=== PATIENT | female | born 1935 | race Caucasian/White ===

== ENCOUNTER 2017-04-17 08:01 | Emergency (ER) | payer OTHER, MEDICARE ==
[~2017-04-17] VITALS: Ht 160 cm; Wt 81.8 kg
[~2017-04-17 08:01] MED LIST: ACYCLOVIR200 MG PO; ADVIL LIQUI-GE200 MG PO; ARIXTRA2.5 MG/0.5 SC; ASCO-TABS-1001000 MG PO; ASCORBIC ACID500 M3 PO; ASPIR-TRIN325 M1 PO; ASPIRIN EC325 MG PO; ATORVASTATIN CA40 MG PO; AUGMENTIN875 MG PO; BAYER CHEWABLE81 MG PO; BENADRYL25 MG PO; BUMETANIDE1 MG PO; CARDIZEM30 MG PO; CLEOCIN300 MG PO; CO Q-1010 MG PO; Calcium/Magnesiun/Zi PO; DIAZEPAM5 MG PO; DIGESTIVE EN1 TABLET PO; DOCUSATE SODIU100 MG PO; Demerol PO; ENDOCET 5-3251 EACH PO; GABAPENTIN300 MG PO; Garlic PO; K-DUR20 MEQ PO; KEFLEX250 MG PO; KRISTALOSE20 GM PO; LANTUS 10100 UNITS/ SC; LASIX20 MG PO; LITE COAT ASPI325 M1 PO; MAG-OX400 M1 PO; METOPROLOL SUCC25 MG PO; METOPROLOL TART50 MG PO; MIRALAX17 GM PO; NEXIUM40 MG PO; NITROSTAT,NITR0.4 M1 SL; NITROSTAT0.4 MG SL; NOVOLIN R (UNI1 UNIT SC; NOVOLIN,HU100 UNITS1 SC; NOVOLOG PE100 UNITS/ SC; Niacin PO; OXYCODONE HCL10 MG PO; Omega III EPA + DHA PO; PEN-VEE K,VEET500 MG PO; PROMETHAZINE HC25 M1 PO; PROTONIX40 MG PO; PYRIDOXINE,VIT100 MG PO; ROXICODONE5 MG PO; SENNA8.6 MG PO; TESSALON PERLE100 MG PO; Tums,OsCal PO; VALIUM5 MG PO; VITAMIN B122500 MCG PO; VITAMIN D1000 INTUN PO; VITAMIN D5000 UNIT PO; Vitamin B Complex PO; Vitamin D PO; Vitamin-E PO; ZOFRAN4 MG/2 ML IV; [UNRECOGNIZED DRUG - OTHER]
[2017-04-17 10:23] LABS: CHLORIDE 109 mEq/L (99-109); POTASSIUM 4.1 mEq/L (3.7-5.4); SODIUM 141 mEq/L (136-147)
[2017-04-17 10:24] LABS: GLUCOSE 154 mg/dL (70-99)
[2017-04-17 10:26] LABS: ANION GAP 12 MEQ/L (2-14)
[2017-04-17 10:28] LABS: GFR ESTIMATE (CALCULATED) > 59 mL/min/
[2017-04-17 10:29] LABS: UREA NITROGEN (BUN) 18 mg/dL (9-23)
[2017-04-17 10:59] LABS: EOSINOPHIL (%) 2.1 % (0-5); EOSINOPHIL COUNT 0.2 K/uL (0-0.3); HEMATOCRIT 39.1 % (36.0-46.0); IMMATURE GRANULOCYTE (%) 0.3 % (0.0-0.7); INSTRUMENT ABS NEUTROPHIL CT 4.2 K/uL; LYMPHOCYTE COUNT 2.2 K/uL (1.0-2.8); MCH 31.3 PG (29.0-34.0); MCHC 33.5 G/DL (30.0-36.0); MCV 93.3 FL (83-99); MONOCYTE (%) 12.5 % (3-12); MONOCYTE COUNT 0.9 K/uL (0-0.8); NEUTROPHIL (%) 55.3 % (45-76); NEUTROPHIL COUNT 4.2 K/uL (1.8-6.4); RBC DIS.WIDTH-CV 12.7 % (11.8-14.6); RBC DIS.WIDTH-SD 43.7 % (39-53); RED BLOOD COUNT 4.19 M/uL (3.80-5.20); WHITE BLOOD COUNT 7.5 K/uL (4.1-10.2)
[2017-04-17 11:28] LABS: PLAT.SUFFICIENCY ADEQUATE; PLATELET COUNT UNABLE TO REPORT K/uL (156-360)
[2017-04-17] MEDS ORDERED: DEMEROL50 MG PO (12:53)
[2017-04-17 13:14] VITALS: BP 130/50
== END 2017-04-17 13:20 | disposition home or self-care (01) ==
LOC: EME 08:01
PROVIDERS: Emergency Medicine
DX: S62.102A Fracture of unspecified carpal bone, left wrist, initial encounter for closed fracture (principal); S40.012A Contusion of left shoulder, initial encounter; W01.0XXA Fall on same level from slipping, tripping and stumbling without subsequent striking against object, initial encounter; Y92.000 Kitchen of unspecified non-institutional (private) residence as the place of occurrence of the external cause; Y93.89 Activity, other specified; I11.0 Hypertensive heart disease with heart failure; I50.9 Heart failure, unspecified; E11.9 Type 2 diabetes mellitus without complications; Z87.442 Personal history of urinary calculi; I25.2 Old myocardial infarction; K21.9 Gastro-esophageal reflux disease without esophagitis; D68.2 Hereditary deficiency of other clotting factors; Z86.73 Personal history of transient ischemic attack (TIA), and cerebral infarction without residual deficits; Z87.891 Personal history of nicotine dependence; Z86.718 Personal history of other venous thrombosis and embolism; Z95.1 Presence of aortocoronary bypass graft; Z85.3 Personal history of malignant neoplasm of breast; Z79.4 Long term (current) use of insulin; Z79.82 Long term (current) use of aspirin
CPT/HCPCS: 73030; 73100; 73110; 73502; 80048; 85025; 93005; 99281; 99285; J2175; J2405; J7030